=== PATIENT | female | born 1960 | race African-American/Black ===

== ENCOUNTER 2025-08-15 19:37 | Emergency (ER) | payer OTHER ==
[~2025-08-15] VITALS: Ht 180.3 cm; Wt 80.0 kg
[2025-08-15 19:48] VITALS: O2SAT 99
[2025-08-15] MEDS: MORPHINE SULFATE 4 MG/ML INJ (FOR IV/IM USE) IV ONE (21:11)
[2025-08-15 21:12] LABS: BASOPHILS % 0.7 % (0.0-2.0); EOSINOPHILS % 1.6 % (0.0-5.0); HEMATOCRIT. 35.7 % (36.0-48.0); HEMOGLOBIN. 11.9 g/dL (12.0-16.0); LYMPHOCYTES % 47.6 % (20.0-50.0); MEAN PLATELET VOLUME 8.3 fl (7.4-10.4); MONOCYTES % 6.5 % (2.0-8.0); NEUTROPHILS % 43.6 % (40.0-76.0); PLATELET 152 x1000/uL (130-400); RED BLOOD CELL COUNT 3.74 mill/uL (4.2-5.4); RED CELL DISTRIBUTION WIDTH 15.6 % (11.6-14.6)
[2025-08-15 21:17] LABS: CREATININE 0.7 mg/dL (0.6-1.0)
[2025-08-15 21:18] LABS: UREA NITROGEN BLOOD 11 mg/dL (9-23)
[2025-08-15 21:20] LABS: TROPONIN I HIGH SENSITIVITY 6 ng/L (3.0-34)
[2025-08-15] MEDS: HYDROMORPHONE HCL/PF 2MG/ML INJ IV ONE (22:32)
[2025-08-16 00:25] VITALS: TEMP 36.8
[2025-08-16 00:45] LABS: TROPONIN I HIGH SENSITIVITY 8 ng/L (3.0-34)
[2025-08-16 02:00] VITALS: BP 90/60; PULSE 65; RESP 14; O2SAT 99
== END 2025-08-16 02:16 | disposition short-term general hospital (02) ==
LOC: ER 19:37 → CMPBEDREQ 08-16 08:02
DX: R07.9 Chest pain, unspecified (principal); E78.00 Pure hypercholesterolemia, unspecified; I11.9 Hypertensive heart disease without heart failure; R06.02 Shortness of breath; I25.2 Old myocardial infarction; Z88.2 Allergy status to sulfonamides
CPT/HCPCS: 99285; 96374; 71045; 80048; 83880; 85025; 84484 ×2; 36415; 93005; 96375; J1171; J2270